=== PATIENT | male | born 1970 | race Caucasian/White ===

== ENCOUNTER 2019-06-13 18:43 | Emergency (ER) | payer OTHER ==
[~2019-06-13] VITALS: Ht 170.2 cm; Wt 88.9 kg
[~2019-06-13 18:43] MED LIST: COZAAR25 MG PO; COZAAR50 MG PO; NORVASC5 MG PO
[2019-06-13] MEDS ORDERED: VERAPAMIL ER180 MG (19:14)
[2019-06-13] MEDS ORDERED: COZAAR100 MG (19:14)
== END 2019-06-13 21:56 | disposition home or self-care (01) ==
LOC: ER 18:43
DX: I16.0 Hypertensive urgency (principal); I10 Essential (primary) hypertension; G44.209 Tension-type headache, unspecified, not intractable

== ENCOUNTER 2024-11-21 16:05 | Emergency (ER) | payer OTHER ==
[~2024-11-21] VITALS: Ht 167.6 cm; Wt 93.0 kg
[~2024-11-21 16:05] MED LIST changes: +COZAAR100 MG; +VERAPAMIL ER180 MG
[2024-11-21] MEDS ORDERED: TOPROL XL100 M1 PO (16:30)
[2024-11-21] MEDS ORDERED: IRBESARTAN-HCT1 EAC1 PO (16:30)
[2024-11-21] MEDS ORDERED: SPIRONOLACTONE25 MG PO (16:31)
[2024-11-21] MEDS ORDERED: KETOROLAC TROMETHAMINE 60 MG VIAL IM ONE ×2 (16:58→17:00)
[2024-11-21] MEDS ORDERED: BACLOFEN10 MG PO (18:43)
[2024-11-21] MEDS ORDERED: DICLOFENAC SODI75 MG PO (18:43)
== END 2024-11-21 19:31 | disposition home or self-care (01) ==
LOC: ER 16:06
DX: M54.2 Cervicalgia (principal); V49.88XA Car occupant (driver) (passenger) injured in other specified transport accidents, initial encounter; Y93.I9 Activity, other involving external motion; Y92.413 State road as the place of occurrence of the external cause; I10 Essential (primary) hypertension